=== PATIENT | female | born 1985 ===

== ENCOUNTER 2016-10-31 21:21 | Emergency (ER) | payer OTHER ==
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
[2016-10-31 21:57] VITALS: BP 137/84; PULSE 66; RESP 16; TEMP 98.4; O2SAT 99
== END 2016-10-31 22:34 | disposition home or self-care (01) ==
LOC: C.ER 21:21
DX: M79.1 Myalgia (principal); V89.2XXA Person injured in unspecified motor-vehicle accident, traffic, initial encounter